=== PATIENT | male | born 1950 | race Two or more races ===

== ENCOUNTER 2019-02-13 10:31 | Day surgery (SDC) | payer MEDICARE, MEDICAID ==
[2019-02-11 11:43] LABS: BASOPHILS % (AUTO) 0.4 % (0-1); EOSINOPHILS # (AUTO) 0.1 X10'3 (0-0.9); HEMATOCRIT 46.1 % (42.0-52.0); HEMOGLOBIN 15.6 g/dl (14.0-17.9); LYMPHOCYTES # (AUTO) 1.3 X10'3 (1.1-4.8); LYMPHOCYTES % (AUTO) 21.7 % (21-51); MEAN CORPUSCULAR HEMOGLOBIN 33.9 PG (27.0-31.0); MEAN CORPUSCULAR HGB CONC 33.9 g/dL (33.0-36.5); MEAN CORPUSCULAR VOLUME 99.8 FL (78-98); MEAN PLATELET VOLUME 7.4 FL (7.4-10.4); MONOCYTES # (AUTO) 0.5 X10'3 (0-0.9); MONOCYTES % (AUTO) 7.6 % (2-12); NEUTROPHILS # (AUTO) 4.1 X10'3 (1.8-7.7); NEUTROPHILS % (AUTO) 68.3 % (42-75); PLATELET COUNT 162 X10'3 (140-440); RED BLOOD COUNT 4.62 X10'6 (4.70-6.10); RED CELL DISTRIBUTION WIDTH 12.7 % (11.5-14.5)
[2019-02-11 11:48] LABS: PARTIAL THROMBOPLASTIN TIME 29 SECONDS (22-32)
[2019-02-11 11:59] LABS: ALANINE AMINOTRANSFERASE 18 U/L (12-78); ALBUMIN 3.3 G/DL (3.4-5.0); ALKALINE PHOSPHATASE 80 IU/L (46-116); ANION GAP 7 (8-16); ASPARTATE AMINO TRANSFERASE 13 U/L (10-37); BLOOD UREA NITROGEN 19 MG/DL (7-18); BUN/CREATININE RATIO 13.6 (5.4-32.0); CALCIUM 8.5 MG/DL (8.5-10.1); CHLORIDE 106 MMOL/L (99-107); GLUCOSE 84 MG/DL (70-104); POTASSIUM 4.6 MMOL/L (3.5-5.1); SODIUM 140 MMOL/L (135-145); TOTAL PROTEIN 6.6 G/DL (6.4-8.2); eGFR 50 ML/MIN
[~2019-02-13] VITALS: Ht 165.1 cm; Wt 84.2 kg
[2019-02-13] VITALS (11 sets, daily range): BP systolic 103–186; BP diastolic 56–105
[~2019-02-13 10:31] MED LIST: ASPI-611 PO; ATOR80TA PO; CLOP75TA15 PO; DOCU100C40 PO; ECON15CR13 TP; FAMO20TA8 PO; GABA-532 PO; GEMF600T5 PO; HYDR-3972 PO; MELO-100 PO; METO25TA6 PO; OMEP-50 PO
[2019-02-13] MEDS ORDERED: nitroGLYCERIN 0.4mg SUBLingual tab SL PRN (10:55)
[2019-02-13] MEDS ORDERED: LORazepam 0.5 MG tablet PO PRN (10:55)
[2019-02-13] MEDS ORDERED: normal saline 1,000 ML IV SCH (10:55)
[2019-02-13] MEDS ORDERED: diphenhydrAMINE 25mg capsule PO PRN (10:55)
[2019-02-13] MEDS ORDERED: METO-539 PO (11:19)
[2019-02-13] MEDS ORDERED: MELO-102 PO (11:19)
[2019-02-13] MEDS ORDERED: midazolam 2 mg/2 ml injection ONE ×2 (13:26→14:21)
[2019-02-13] MEDS ORDERED: iohexol 350MG/ML 100ml bottle IV ONE ×2 (13:27→14:08)
[2019-02-13] MEDS ORDERED: fentaNYL/PF 50MCG/1 ML 2ML syringe ONE ×2 (13:27→14:24)
[2019-02-13] MEDS ORDERED: LIDOcaine 1% (10mg/ml)w/preservative injection 20ml MDV ONE (13:27)
[2019-02-13] MEDS ORDERED: iohexol 350 MG/ML 50ML vial IV ONE (13:27)
[2019-02-13] MEDS ORDERED: HYDROcodone/acetaminophen 5mg/325mg tablet PO PRN (16:15)
[2019-02-13] MEDS ORDERED: OXAZEpam 15mg capsule PO PRN (16:15)
[2019-02-13] MEDS ORDERED: ondansetron/PF 4mg/2ml inj IV PRN (16:15)
[2019-02-13] MEDS ORDERED: proCHLORperazine 10 MG/2 ml inj IV PRN (16:15)
[2019-02-13] MEDS ORDERED: HYDROcodone/acetaminophen 10/325mg tab PO PRN (16:15)
== END 2019-02-13 21:00 | disposition home or self-care (01) ==
LOC: SSTAY O 10:31
PROVIDERS: ATTEND Internal Medicine Cardiovascular Disease
DX: I25.10 Atherosclerotic heart disease of native coronary artery without angina pectoris (principal); I12.9 Hypertensive chronic kidney disease with stage 1 through stage 4 chronic kidney disease, or unspecified chronic kidney disease; N18.3 Chronic kidney disease, stage 3 (moderate); M19.90 Unspecified osteoarthritis, unspecified site; K21.9 Gastro-esophageal reflux disease without esophagitis; J44.9 Chronic obstructive pulmonary disease, unspecified; E78.5 Hyperlipidemia, unspecified; Z87.891 Personal history of nicotine dependence; Z95.1 Presence of aortocoronary bypass graft; Z79.82 Long term (current) use of aspirin; Z79.899 Other long term (current) drug therapy; Z79.01 Long term (current) use of anticoagulants
CPT/HCPCS: 36415; 71046; 80053; 83880; 85025; 85610; 85730; 93005; 93459; 99152; 99153; C1769; J1644; J2001; J2250; J3010; J7030; Q0163; Q9967; A4620; A6258; C1760

== ENCOUNTER 2020-09-14 05:24 | Day surgery (SDC) | payer MEDICARE, MEDICAID ==
[2020-09-07 12:55] LABS: BASOPHILS % (AUTO) 0.6 % (0-1); EOSINOPHILS # (AUTO) 0.1 X10'3 (0-0.9); EOSINOPHILS % (AUTO) 2.1 % (0-6); LYMPHOCYTES # (AUTO) 1.4 X10'3 (1.1-4.8); LYMPHOCYTES % (AUTO) 26.7 % (21-51); MEAN CORPUSCULAR HEMOGLOBIN 32.6 PG (27.0-31.0); MEAN CORPUSCULAR HGB CONC 33.3 g/dL (33.0-36.5); MEAN CORPUSCULAR VOLUME 97.8 FL (78-98); MEAN PLATELET VOLUME 7.5 FL (7.4-10.4); MONOCYTES # (AUTO) 0.5 X10'3 (0-0.9); MONOCYTES % (AUTO) 10.1 % (2-12); NEUTROPHILS # (AUTO) 3.2 X10'3 (1.8-7.7); NEUTROPHILS % (AUTO) 60.5 % (42-75); PRE OP HEMATOCRIT 44.6 % (42.0-52.0); PRE OP HEMOGLOBIN 14.8 g/dL (14.0-17.9); PRE OP PLATELET COUNT 257 X10'3 (140-440); RED BLOOD COUNT 4.56 X10'6 (4.70-6.10); RED CELL DISTRIBUTION WIDTH 14.2 % (11.5-14.5)
[2020-09-07 13:20] LABS: ALBUMIN 3.4 G/DL (3.4-5.0); ALBUMIN/GLOBULIN RATIO 0.9 (1.1-1.5); ALKALINE PHOSPHATASE 106 IU/L (46-116); BLOOD UREA NITROGEN 13 MG/DL (7-18); BUN/CREATININE RATIO 10.6 (5.4-32.0); CALCIUM 9.2 MG/DL (8.5-10.1); CHLORIDE 105 MMOL/L (99-107); CREATININE 1.23 MG/DL (0.60-1.10); PRE OP ALT 18 U/L (30-65); PRE OP ANION GAP 8 (8-16); PRE OP AST 21 U/L (10-37); PRE OP BILIRUB, TOTAL 0.4 MG/DL (0.0-1.0); PRE OP GLUCOSE 103 MG/DL (70-104); PRE OP POTASSIUM 3.7 MMOL/L (3.4-5.1); PRE OP SODIUM 141 MMOL/L (135-145); TOTAL CARBON DIOXIDE 28.4 MMOL/L (24-32); TOTAL PROTEIN 7.2 G/DL (6.4-8.2); eGFR 58 ML/MIN
[2020-09-14] VITALS (8 sets, daily range): BP systolic 143–170; BP diastolic 78–97
[~2020-09-14] VITALS: Ht 165.1 cm; Wt 80.0 kg
[~2020-09-14 05:24] MED LIST changes: +BACL10TA2 PO; -CLOP75TA15 PO; -DOCU100C40 PO; -ECON15CR13 TP; -FAMO20TA8 PO; +GABA-530 PO; -GABA-532 PO; -GEMF600T5 PO; +GEMF600T89 PO; -HYDR-3972 PO; +LISI10TA27 PO; -MELO-100 PO; +TRAM50TA2 PO; +ringers solution, lacted 1,000 ML IV SCH
[2020-09-14] MEDS ORDERED: DOCUMENT DATE & TIME OF BETA-BLOCKER PO ONE (05:30)
[2020-09-14] MEDS ORDERED: famotidine 20mg tablet PO ONE (05:30)
[2020-09-14] MEDS ORDERED: ceFAZolin 2gm in dextrose, iso 50 ML IV ONE (05:30)
[2020-09-14] MEDS ORDERED: BUPIVAcaine/PF 2.5mg/ml (0.25%) 10ml vial ONE (06:46)
[2020-09-14] MEDS ORDERED: LIDOcaine 0.5% (5mg/ml) 50ml vial ONE (07:04)
[2020-09-14] MEDS ORDERED: morphine 2 MG/ML inj. syringe IV PRN (07:10)
[2020-09-14] MEDS ORDERED: ondansetron/PF 4mg/2ml inj IV PRN (07:10)
[2020-09-14] MEDS ORDERED: fentaNYL/PF 50MCG/1 ML 2ML syringe IV PRN ×2 (07:10)
[2020-09-14] MEDS ORDERED: hydrALAZINE 20mg/ml inj. IV PRN (07:10)
[2020-09-14] MEDS ORDERED: labetalol 20mg/4ml (5mg/ml) syringe IV PRN (07:10)
[2020-09-14] MEDS ORDERED: ringers solution, lacted 1,000 ML IV SCH (07:10)
[2020-09-14] MEDS ORDERED: morphine 4 MG/ML inj SYRINge IV PRN (07:10)
[2020-09-14] MEDS ORDERED: MIDAZolam 1 MG/ML 5ML VIAL ONE (07:13)
[2020-09-14] MEDS ORDERED: fentaNYL/PF 50MCG/1 ML 2ML syringe ONE (07:13)
--- NOTE | 2020-09-14 09:11 | NUR ---
Received from OR via [facility] , accompanied by Anesthesiologist and report given by Anesthesiolgist. PATIENT IN STABLE CONDITION AND DENIES ANY PAIN AT THIS TIME. Addendum: 09/14/20 at 0932 by Patria Garcia RN Amended: Links added.
--- NOTE | 2020-09-14 10:15 | NUR ---
PATIENT DISCHARGED AFTER WRITTEN AND VERBAL DISCHARGE INSTRUCTIONS GIVEN. PATIENT GAVE VERBAL UNDERSTAND Addendum: 09/14/20 at 1019 by Patria Garcia RN Amended: Links added.
--- NOTE | 2020-09-14 10:16 | NUR ---
PATIENT DISCHARGED HOME AFTER WRITTEN AND VERBAL DISCHARGE INSTRUCTIONS GIVEN. PATENT GAVE VERBAL UNDERSTANDING OF DISCHARGE INSTRUCTIONS. PATIENT LEFT FACILITY VIA WHEELCHAIR WITH PERSONAL BELONGINGS.. PATIENT LEFT IN TRANSPORT VAN WITH NO INCIDENCE. Addendum: 09/14/20 at 1019 by Patria Garcia RN Amended: Links added.
== END 2020-09-14 09:57 | disposition home or self-care (01) ==
LOC: PAS 05:24
PROVIDERS: ATTEND Orthopaedic Surgery Hand Surgery
DX: G56.02 Carpal tunnel syndrome, left upper limb (principal); I10 Essential (primary) hypertension; G89.29 Other chronic pain; I25.10 Atherosclerotic heart disease of native coronary artery without angina pectoris; M19.011 Primary osteoarthritis, right shoulder; M18.0 Bilateral primary osteoarthritis of first carpometacarpal joints; K21.9 Gastro-esophageal reflux disease without esophagitis; E78.5 Hyperlipidemia, unspecified; E66.9 Obesity, unspecified; Z68.29 Body mass index [BMI] 29.0-29.9, adult; Z79.899 Other long term (current) drug therapy; Z95.1 Presence of aortocoronary bypass graft; Z96.653 Presence of artificial knee joint, bilateral; Z20.822 Contact with and (suspected) exposure to COVID-19; Z82.49 Family history of ischemic heart disease and other diseases of the circulatory system
CPT/HCPCS: 36415; 64721; 80053; 82948; 85025; 93005; A6222; J2001; J2250; J3010; J3490; U0003; A4215; A6449; J7120

== ENCOUNTER 2021-03-24 12:37 | Emergency (ER) | payer MEDICARE, MEDICAID ==
[~2021-03-24] VITALS: Ht 165.1 cm; Wt 80.0 kg
[~2021-03-24 12:37] MED LIST changes: +LOP25T PO; -METO25TA6 PO; -ringers solution, lacted 1,000 ML IV SCH
[2021-03-24 12:58] VITALS: BP 127/84
[2021-03-24] MEDS ORDERED: ORPH100T2 PO (14:24)
[2021-03-24] MEDS ORDERED: ketorolac trometh inj. 60 MG/2 ML VIAL IM ONE (14:25)
[2021-03-24] MEDS ORDERED: orphenadrine citrate 60mg/2ml inj. IM ONE (14:25)
== END 2021-03-24 14:55 | disposition home or self-care (01) ==
LOC: ER 12:41
DX: S46.911A Strain of unspecified muscle, fascia and tendon at shoulder and upper arm level, right arm, initial encounter (principal); M62.830 Muscle spasm of back; I25.10 Atherosclerotic heart disease of native coronary artery without angina pectoris; E78.00 Pure hypercholesterolemia, unspecified; I10 Essential (primary) hypertension; I25.2 Old myocardial infarction; G89.29 Other chronic pain; Z98.890 Other specified postprocedural states; Z72.89 Other problems related to lifestyle; Z79.82 Long term (current) use of aspirin; Z79.899 Other long term (current) drug therapy; X58.XXXA Exposure to other specified factors, initial encounter; Y93.89 Activity, other specified; Y92.89 Other specified places as the place of occurrence of the external cause; Y99.8 Other external cause status
CPT/HCPCS: 71045; 93005; 96372; 99284; J1885; J2360

== ENCOUNTER 2022-03-07 06:09 | Day surgery (SDC) | payer MEDICARE, MEDICAID ==
[2022-03-01 11:08] LABS: BASOPHILS % (AUTO) 0.5 % (0-1); EOSINOPHILS # (AUTO) 0.1 X10'3 (0-0.9); EOSINOPHILS % (AUTO) 2.1 % (0-6); LYMPHOCYTES # (AUTO) 1.4 X10'3 (1.1-4.8); MEAN CORPUSCULAR HGB CONC 33.9 g/dL (33.0-36.5); MEAN CORPUSCULAR VOLUME 97.5 FL (78-98); MONOCYTES # (AUTO) 0.5 X10'3 (0-0.9); NEUTROPHILS # (AUTO) 3.5 X10'3 (1.8-7.7); NEUTROPHILS % (AUTO) 63.4 % (42-75); PRE OP HEMATOCRIT 41.9 % (42.0-52.0); PRE OP HEMOGLOBIN 14.2 g/dL (14.0-17.9); PRE OP PLATELET COUNT 236 X10'3 (140-440); RED BLOOD COUNT 4.29 X10'6 (4.70-6.10); RED CELL DISTRIBUTION WIDTH 13.5 % (11.5-14.5)
[2022-03-01 11:32] LABS: ALBUMIN 3.3 G/DL (3.4-5.0); ALBUMIN/GLOBULIN RATIO 0.9 (1.1-1.5); ALKALINE PHOSPHATASE 94 IU/L (46-116); BLOOD UREA NITROGEN 24 MG/DL (7-18); BUN/CREATININE RATIO 14.8 (5.4-32.0); CALCIUM 8.9 MG/DL (8.5-10.1); CHLORIDE 107 MMOL/L (99-107); CREATININE 1.62 MG/DL (0.60-1.10); PRE OP ALT 15 U/L (30-65); PRE OP ANION GAP 8 (8-16); PRE OP AST 14 U/L (10-37); PRE OP BILIRUB, TOTAL 0.4 MG/DL (0.0-1.0); PRE OP GLUCOSE 83 MG/DL (70-104); PRE OP POTASSIUM 4.2 MMOL/L (3.4-5.1); PRE OP SODIUM 142 MMOL/L (135-145); TOTAL CARBON DIOXIDE 27.1 MMOL/L (24-32); eGFR 42 ML/MIN
[~2022-03-07] VITALS: Ht 165.1 cm; Wt 84.1 kg
[~2022-03-07 06:09] MED LIST changes: +DOCUMENT DATE & TIME OF BETA-BLOCKER PO ONE; -GEMF600T89 PO; -OMEP-50 PO; +OMEP20CA16 PO; +VITAMIN D3; +ceFAZolin inj. 2,000 MG in dextrose 5%-water 100 ML IV ONE; +famotidine 20mg tablet PO ONE; +ringers solution, lacted 1,000 ML IV SCH
[2022-03-07 06:20] VITALS: BP 122/80
[2022-03-07] MEDS ORDERED: LIDOcaine 0.5% (5mg/ml) 50ml vial ONE (07:27)
[2022-03-07] MEDS ORDERED: BUPIVAcaine/PF 2.5mg/ml (0.25%) 10ml vial ONE (08:04)
[2022-03-07] MEDS ORDERED: midazolam 1 mg/ML 2ml injection ONE (09:31)
[2022-03-07] MEDS ORDERED: fentaNYL/PF 50MCG/1 ML 2ML syringe ONE (09:31)
[2022-03-07 10:02] VITALS: BP 140/82
--- NOTE | 2022-03-07 10:02 | NUR ---
Received from OR via [facility] accompanied by Anesthesiologist HYUN and report given by Anesthesiolgist. ARRIVES AAOX4, NO COMPLAINTS OF PAIN. DRESSING CLEAN DRY AND INTACT TO R LOWER ARM. ON RA. Addendum: 03/07/22 at 1017 by Cachorro Conteh RN Amended: Links added.
[2022-03-07 10:10] VITALS: BP 128/77
[2022-03-07 10:20] VITALS: BP 135/83
--- NOTE | 2022-03-07 10:32 | NUR ---
PT OUT OF REC ROOM WITH WHEELCHAIR, PT AMBULATORY AND INDEPENDENT WITH NARROW STEADY GAIT. NO COMPLAINTS OF PAIN, AAOX4, PT PROVIDED VERBAL AND WRITTEN DC PAPERWORK, QUESTIONS ADDRESSED. TO POV INTO CARE OF FRIEND WITHOUT INCIDENT. Addendum: 03/07/22 at 1047 by Cachorro Conteh RN Amended: Links added.
== END 2022-03-07 10:32 | disposition home or self-care (01) ==
LOC: PAS 06:09
PROVIDERS: ATTEND Orthopaedic Surgery Hand Surgery
DX: G56.01 Carpal tunnel syndrome, right upper limb (principal); E78.5 Hyperlipidemia, unspecified; I10 Essential (primary) hypertension; I25.2 Old myocardial infarction; K21.9 Gastro-esophageal reflux disease without esophagitis; Z96.653 Presence of artificial knee joint, bilateral; Z79.899 Other long term (current) drug therapy; Z98.890 Other specified postprocedural states; Z95.1 Presence of aortocoronary bypass graft; Z95.5 Presence of coronary angioplasty implant and graft
CPT/HCPCS: 29848; 36415; 80053; 82948; 85025; 87811; 93005; J0690; J2250; J3010; J3490; J7030; J7060; J7120; Z7506; Z7512; A4215; A7000

== ENCOUNTER 2023-01-17 11:45 | Inpatient (IN) | payer MEDICARE, MEDICAID ==
[~2023-01-17] VITALS: Ht 165.1 cm; Wt 79.0 kg
[~2023-01-17 11:45] MED LIST changes: -ASPI-611 PO; +ASPI81TA52 PO; -BACL10TA2 PO; +CHOL20003 PO; -DOCUMENT DATE & TIME OF BETA-BLOCKER PO ONE; +FLO0.4C PO; -TRAM50TA2 PO; -VITAMIN D3; -ceFAZolin inj. 2,000 MG in dextrose 5%-water 100 ML IV ONE; -famotidine 20mg tablet PO ONE; -ringers solution, lacted 1,000 ML IV SCH
[2023-01-17] MEDS ORDERED: normal saline 1000ML IV soln IVB ONE (12:25)
[2023-01-17 13:31] LABS: BASOPHILS % (AUTO) 0.2 % (0-1); EOSINOPHILS # (AUTO) 0.1 X10'3 (0-0.9); EOSINOPHILS % (AUTO) 2.1 % (0-6); HEMATOCRIT 41.1 % (42.0-52.0); HEMOGLOBIN 13.7 g/dl (14.0-17.9); LYMPHOCYTES % (AUTO) 16.1 % (21-51); MEAN CORPUSCULAR HEMOGLOBIN 33.1 PG (27.0-31.0); MEAN CORPUSCULAR HGB CONC 33.2 g/dL (33.0-36.5); MEAN CORPUSCULAR VOLUME 99.7 FL (78-98); MONOCYTES # (AUTO) 0.6 X10'3 (0-0.9); MONOCYTES % (AUTO) 10.5 % (2-12); NEUTROPHILS # (AUTO) 4.2 X10'3 (1.8-7.7); NEUTROPHILS % (AUTO) 71.1 % (42-75); PLATELET COUNT 222 X10'3 (140-440); RED BLOOD COUNT 4.13 X10'6 (4.70-6.10); RED CELL DISTRIBUTION WIDTH 14.4 % (11.5-14.5)
[2023-01-17 13:52] LABS: ALANINE AMINOTRANSFERASE 15 U/L (12-78); ALBUMIN 3.3 G/DL (3.4-5.0); ALBUMIN/GLOBULIN RATIO 0.9 (1.1-1.5); ALKALINE PHOSPHATASE 87 IU/L (46-116); ANION GAP 17 (8-16); ASPARTATE AMINO TRANSFERASE 13 U/L (10-37); BILIRUBIN,TOTAL 0.9 MG/DL (0.1-1.0); BLOOD UREA NITROGEN 61 MG/DL (7-18); BUN/CREATININE RATIO 8.6 (10.0-20.0); CALCIUM 8.6 MG/DL (8.5-10.1); CHLORIDE 99 MMOL/L (99-107); GLUCOSE 114 MG/DL (70-104); POTASSIUM 4.2 MMOL/L (3.5-5.1); SODIUM 138 MMOL/L (135-145); TOTAL PROTEIN 6.8 G/DL (6.4-8.2); eGFR 8 ML/MIN
[2023-01-17] MEDS ORDERED: potassium Cl 20 mEq SR tablet PO PRN ×2 (15:35)
[2023-01-17] MEDS ORDERED: magnesium Cl slow-release 64mg tablet PO PRN (15:35)
[2023-01-17] MEDS ORDERED: acetaminophen 325mg tablet PO PRN (15:35)
[2023-01-17] MEDS ORDERED: magnesium 4gm in 100ml NS 100 ML IV PRN (15:35)
[2023-01-17] MEDS ORDERED: potassium Cl 40MEQ/1/2NS 520ml 520 ML IV PRN (15:35)
[2023-01-17] MEDS ORDERED: magnesium hydroxide 30ml (MOM) UD suspension PO PRN (15:35)
[2023-01-17] MEDS ORDERED: ondansetron/PF 4mg/2ml inj IV PRN (15:35)
[2023-01-17] MEDS ORDERED: magnesium 2GM in 50ml NS 50 ML IV PRN (15:35)
[2023-01-17] MEDS ORDERED: mag hydrox/Alum hydrox/simeth 30ml oral suspension PO PRN (15:35)
[2023-01-17] MEDS ORDERED: TRAM50TA2 PO (15:40)
[2023-01-17] MEDS ORDERED: ATOR40TA72 PO (15:40)
[2023-01-17] MEDS ORDERED: CYCL-1 PO (15:40)
[2023-01-17] MEDS ORDERED: NITR0.4T48 SL (15:40)
[2023-01-17] MEDS: normal saline 1000ml 1,000 ML IV SCH (15:58)
[2023-01-17 16:29] LABS: CREATINE KINASE 157 U/L (39-308); MAGNESIUM 2.1 MG/DL (1.5-2.4); PHOSPHORUS 6.9 MG/DL (2.3-4.5)
--- NOTE | 2023-01-17 18:53 | NUR ---
pt eating dinner.
[2023-01-17 19:53] VITALS: BP 107/55; PULSE 61; RESP 16; TEMP 98.3; O2SAT 97
--- NOTE | 2023-01-17 19:54 | NUR ---
Received patient to room 4021B. Patient alert and oriented in no apparent acute distress and no complaints. Patient denies pain or discomfort, no dizziness or lightheadedness. Patient able to ambulate independently to bathroom. Oriented patient to room and call light. Call light placed within patients reach.
[2023-01-17] MEDS: K and/or MAG REPLACEMENT MC SCH (20:00)
[2023-01-17] MEDS: docusate sod 100mg capsule PO SCH (20:00)
[2023-01-17 20:44] VITALS: RESP 16; O2SAT 97
--- NOTE | 2023-01-17 21:10 | NUR ---
AGER ID: [id number] MESSAGE: 4021B- Munir Daniels- pt states normally takes Flexeril 10MG po BID and tramadol 50mg po PRN BID for back pain. Ok to order? Patient c/o pain- Ayan [phone]
[2023-01-17] MEDS ORDERED: traMADol 50MG tablet PO PRN (21:15)
[2023-01-17 21:23] LABS: CLARITY,URINE SLIGHTLY CLOUDY (Clear); COLOR,URINE YELLOW (Yellow); GLUCOSE, URINE NEGATIVE (Neg); KETONES,URINE NEGATIVE (Neg); LEUKOCYTE ESTERASE ,URINE NEGATIVE (Neg); NITRITES, URINE NEGATIVE (Neg); OCCULT BLOOD,URINE NEGATIVE (Neg); PH,URINE 5.5 (4.8-8.0); PROTEIN,URINE TRACE mg/dl (Neg)
[2023-01-17] MEDS: cyclobenzaprine 10mg tablet PO SCH (21:23)
[2023-01-17 21:31] LABS: SQUAMOUS EPITHELIAL CELL,UR FEW /LPF (FEW); UA COLLECTION TYPE NON-SPECIFIED
[2023-01-17 21:32] LABS: COARSE GRANULAR CAST 0-3 /LPF (NEGATIVE); HYALINE CASTS >30 /LPF (NEGATIVE); MUCUS STRANDS FEW /LPF (Neg)
[2023-01-17 21:33] LABS: BACTERIA,URINE FEW /HPF (Neg); RBC,URINE 0-2 /HPF (0-2); WBC,URINE 0-4 /HPF (0-4)
[2023-01-17 21:40] LABS: CAL OXALATE CRYSTALS 1+ /HPF (NEGATIVE); RENAL CELLS, URINE FEW /HPF
[2023-01-17 23:15] VITALS: BP 107/66; PULSE 63; RESP 16; TEMP 98.4; O2SAT 96
[2023-01-18] MEDS: normal saline 1000ml 1,000 ML IV SCH ×2 (02:13→15:10)
[2023-01-18 06:00] VITALS: BP 98/54; PULSE 60; RESP 19; TEMP 97.4; O2SAT 95
--- NOTE | 2023-01-18 06:09 | NUR ---
Problems reprioritized. Patient report given, questions answered & plan of care reviewed with JENI Sanz.
[2023-01-18 06:14] LABS: BASOPHILS % (AUTO) 0.4 % (0-1); EOSINOPHILS # (AUTO) 0.1 X10'3 (0-0.9); EOSINOPHILS % (AUTO) 2.8 % (0-6); HEMATOCRIT 38.4 % (42.0-52.0); HEMOGLOBIN 12.8 g/dl (14.0-17.9); LYMPHOCYTES # (AUTO) 1.3 X10'3 (1.1-4.8); LYMPHOCYTES % (AUTO) 24.7 % (21-51); MEAN CORPUSCULAR HEMOGLOBIN 33.4 PG (27.0-31.0); MEAN CORPUSCULAR HGB CONC 33.4 g/dL (33.0-36.5); MEAN PLATELET VOLUME 7.9 FL (7.4-10.4); MONOCYTES # (AUTO) 0.6 X10'3 (0-0.9); MONOCYTES % (AUTO) 12.5 % (2-12); NEUTROPHILS # (AUTO) 3.1 X10'3 (1.8-7.7); NEUTROPHILS % (AUTO) 59.6 % (42-75); PLATELET COUNT 189 X10'3 (140-440); RED BLOOD COUNT 3.83 X10'6 (4.70-6.10); WHITE BLOOD COUNT 5.2 X10'3 (4.5-11.0)
[2023-01-18 06:27] LABS: ALANINE AMINOTRANSFERASE 13 U/L (12-78); ALBUMIN 2.8 G/DL (3.4-5.0); ALBUMIN/GLOBULIN RATIO 0.9 (1.1-1.5); ALKALINE PHOSPHATASE 81 IU/L (46-116); ANION GAP 11 (8-16); ASPARTATE AMINO TRANSFERASE 16 U/L (10-37); BILIRUBIN,TOTAL 0.4 MG/DL (0.1-1.0); BLOOD UREA NITROGEN 55 MG/DL (7-18); BUN/CREATININE RATIO 13.1 (10.0-20.0); CALCIUM 7.8 MG/DL (8.5-10.1); CHLORIDE 107 MMOL/L (99-107); GLUCOSE 87 MG/DL (70-104); POTASSIUM 4.3 MMOL/L (3.5-5.1); SODIUM 139 MMOL/L (135-145); TOTAL CARBON DIOXIDE 21.2 MMOL/L (24-32); TOTAL PROTEIN 5.9 G/DL (6.4-8.2); eGFR 14 ML/MIN
[2023-01-18] MEDS: cyclobenzaprine 10mg tablet PO SCH ×2 (07:52→20:00)
[2023-01-18 08:00] VITALS: RESP 16; O2SAT 97
[2023-01-18] MEDS: docusate sod 100mg capsule PO SCH ×2 (08:00→20:00)
[2023-01-18] MEDS: K and/or MAG REPLACEMENT MC SCH ×2 (08:00→20:00)
[2023-01-18 10:00] VITALS: BP 100/52; PULSE 59; RESP 16; TEMP 97.5; O2SAT 97
--- NOTE | 2023-01-18 11:15 | NUR ---
Patient in room [facility]THO 4020. I have received report from ashley ramos and had the opportunity to ask questions and assume patient care.
--- NOTE | 2023-01-18 14:41 | NUR ---
Page Accepted Message: [id number] [address] pt wants to take his meds and can these please be reviewed. was unable to get in contact with resident thanks satcy. [phone]
[2023-01-18 15:34] LABS: HEMOGLOBIN A1C 5.5 % (4.5-6.2)
[2023-01-18 15:45] LABS: HDL CHOLESTEROL 33 MG/DL (35-60); LDL CHOLESTEROL 65 MG/DL (50-100); MAGNESIUM 1.6 MG/DL (1.5-2.4); PHOSPHORUS 3.6 MG/DL (2.3-4.5); TRIGLYCERIDES 192 MG/DL (20-135)
[2023-01-18 15:56] LABS: CHOL/HDL RATIO 3.8 (0.00-4.99); CHOLESTEROL 127 MG/DL (0-200)
--- NOTE | 2023-01-18 16:50 | NUR ---
Page Accepted Message: [id number] b la pt needs his meds reviewed so he can take them. this is my 2nd page. stacy [phone]
[2023-01-18] MEDS ORDERED: traMADol 50MG tablet PO PRN (16:55)
[2023-01-18] MEDS: tamsulosin 0.4mg capsule PO SCH (17:47)
[2023-01-18 18:00] VITALS: BP 111/58; PULSE 63; RESP 16; TEMP 98.6; O2SAT 98
--- NOTE | 2023-01-18 18:19 | NUR ---
Problems reprioritized. Patient report given, questions answered & plan of care reviewed with christa ramos.
--- NOTE | 2023-01-18 18:51 | NUR ---
Report received from Manny NGO, assumed care of patient at 1830
[2023-01-18] MEDS ORDERED: cyclobenzaprine 10mg tablet PO SCH (20:00)
[2023-01-18 20:35] VITALS: BP 118/52; PULSE 62; RESP 16
[2023-01-18] MEDS: metoprolol tartrate 25mg tablet PO SCH (20:40)
[2023-01-18] MEDS ORDERED: aspirin 81mg, enteric-coated 1 TAB TABLET.DR PO SCH (21:00)
[2023-01-18] MEDS ORDERED: cholecalciferol (vitamin D3) 1,000 unit (25mcg) tablet PO SCH (21:00)
[2023-01-18] MEDS ORDERED: atorvastatin 20mg tablet PO SCH (21:00)
[2023-01-18 23:00] VITALS: BP 122/58
[2023-01-19] MEDS: normal saline 1000ml 1,000 ML IV SCH ×2 (00:57→08:14)
[2023-01-19 05:59] LABS: BASOPHILS % (AUTO) 0.6 % (0-1); EOSINOPHILS # (AUTO) 0.1 X10'3 (0-0.9); EOSINOPHILS % (AUTO) 2.1 % (0-6); HEMATOCRIT 37.9 % (42.0-52.0); HEMOGLOBIN 12.8 g/dl (14.0-17.9); LYMPHOCYTES # (AUTO) 1.3 X10'3 (1.1-4.8); LYMPHOCYTES % (AUTO) 26.6 % (21-51); MEAN CORPUSCULAR HEMOGLOBIN 33.6 PG (27.0-31.0); MEAN CORPUSCULAR HGB CONC 33.9 g/dL (33.0-36.5); MEAN CORPUSCULAR VOLUME 99.2 FL (78-98); MEAN PLATELET VOLUME 7.9 FL (7.4-10.4); MONOCYTES # (AUTO) 0.6 X10'3 (0-0.9); MONOCYTES % (AUTO) 11.5 % (2-12); NEUTROPHILS # (AUTO) 2.9 X10'3 (1.8-7.7); NEUTROPHILS % (AUTO) 59.2 % (42-75); PLATELET COUNT 193 X10'3 (140-440); RED BLOOD COUNT 3.82 X10'6 (4.70-6.10); RED CELL DISTRIBUTION WIDTH 13.9 % (11.5-14.5)
--- NOTE | 2023-01-19 06:30 | NUR ---
reported to day RN. noted patient's labs improving and patient wants to go home today. am labs drawn.
[2023-01-19 06:56] LABS: ALANINE AMINOTRANSFERASE 11 U/L (12-78); ALBUMIN 2.6 G/DL (3.4-5.0); ALBUMIN/GLOBULIN RATIO 0.9 (1.1-1.5); ALKALINE PHOSPHATASE 70 IU/L (46-116); ANION GAP 10 (8-16); ASPARTATE AMINO TRANSFERASE 15 U/L (10-37); BILIRUBIN,TOTAL 0.5 MG/DL (0.1-1.0); BLOOD UREA NITROGEN 33 MG/DL (7-18); BUN/CREATININE RATIO 21.2 (10.0-20.0); CHLORIDE 109 MMOL/L (99-107); CREATININE 1.56 MG/DL (0.60-1.10); GLUCOSE 87 MG/DL (70-104); MAGNESIUM 1.4 MG/DL (1.5-2.4); PHOSPHORUS 2.4 MG/DL (2.3-4.5); POTASSIUM 4.2 MMOL/L (3.5-5.1); SODIUM 139 MMOL/L (135-145); TOTAL CARBON DIOXIDE 20.1 MMOL/L (24-32); TOTAL PROTEIN 5.6 G/DL (6.4-8.2); eGFR 44 ML/MIN
[2023-01-19 07:12] VITALS: BP 116/61; PULSE 87; RESP 23; TEMP 98.6; O2SAT 99
[2023-01-19 08:00] VITALS: RESP 23; O2SAT 99
[2023-01-19] MEDS: K and/or MAG REPLACEMENT MC SCH (08:00)
[2023-01-19] MEDS ORDERED: pantoprazole 40mg Tablet.DR PO SCH (08:00)
[2023-01-19] MEDS: docusate sod 100mg capsule PO SCH (08:12)
[2023-01-19] MEDS: cyclobenzaprine 10mg tablet PO SCH (08:12)
[2023-01-19] MEDS: metoprolol tartrate 25mg tablet PO SCH (08:13)
[2023-01-19] MEDS: tamsulosin 0.4mg capsule PO SCH (08:13)
[2023-01-19 10:00] VITALS: BP 127/77; PULSE 66; RESP 16; TEMP 98.3; O2SAT 99
--- NOTE | 2023-01-19 13:08 | NUR ---
Pt discharged home. Friend picked up pt. Pt left in stable condition, ambulated independently. All belongings sent home with pt.
[2023-01-19] MEDS ORDERED: ACET-1008 PO (15:53)
== END 2023-01-19 12:55 | disposition home or self-care (01) | DRG 682 ==
LOC: ER 11:46 → ED HOLD 15:39 → ORTHO 4S 19:50
PROVIDERS: ADMIT Internal Medicine; ATTEND Internal Medicine
DX: N17.0 Acute kidney failure with tubular necrosis (principal); I21.A1 Myocardial infarction type 2; R57.1 Hypovolemic shock; I95.9 Hypotension, unspecified; E86.0 Dehydration; I25.10 Atherosclerotic heart disease of native coronary artery without angina pectoris; Z96.653 Presence of artificial knee joint, bilateral; F10.20 Alcohol dependence, uncomplicated; E78.00 Pure hypercholesterolemia, unspecified; M54.50 Low back pain, unspecified; N40.0 Benign prostatic hyperplasia without lower urinary tract symptoms; R00.1 Bradycardia, unspecified; G89.29 Other chronic pain; I10 Essential (primary) hypertension; I25.2 Old myocardial infarction; Z95.1 Presence of aortocoronary bypass graft; Z82.3 Family history of stroke; Z79.899 Other long term (current) drug therapy; Z79.82 Long term (current) use of aspirin
CPT/HCPCS: 36415; 71045; 76770; 80053; 80061; 81001; 82550; 82948; 83036; 83605; 83735; 83880; 84100; 84145; 84443; 84484; 85025; 87040; 87081; 93005; 99285; G0378; J7030

== ENCOUNTER 2023-07-10 06:28 | Day surgery (SDC) | payer MEDICARE, MEDICAID ==
[2023-07-03 11:29] LABS: BASOPHILS % (AUTO) 0.6 % (0-1); EOSINOPHILS # (AUTO) 0.1 X10'3 (0-0.9); EOSINOPHILS % (AUTO) 2.4 % (0-6); LYMPHOCYTES # (AUTO) 1.4 X10'3 (1.1-4.8); LYMPHOCYTES % (AUTO) 24.4 % (21-51); MEAN CORPUSCULAR HEMOGLOBIN 32.7 PG (27.0-31.0); MEAN CORPUSCULAR HGB CONC 33.8 g/dL (33.0-36.5); MEAN CORPUSCULAR VOLUME 96.8 FL (78-98); MEAN PLATELET VOLUME 7.1 FL (7.4-10.4); MONOCYTES # (AUTO) 0.6 X10'3 (0-0.9); MONOCYTES % (AUTO) 10.4 % (2-12); NEUTROPHILS # (AUTO) 3.7 X10'3 (1.8-7.7); NEUTROPHILS % (AUTO) 62.2 % (42-75); PRE OP HEMATOCRIT 46.9 % (42.0-52.0); PRE OP HEMOGLOBIN 15.8 g/dL (14.0-17.9); PRE OP PLATELET COUNT 242 X10'3 (140-440); PRE OP WHITE BLOOD COUNT 5.9 10'3 (4.8-10.8); RED BLOOD COUNT 4.84 X10'6 (4.70-6.10); RED CELL DISTRIBUTION WIDTH 12.9 % (11.5-14.5)
[2023-07-03 11:44] LABS: ALBUMIN 3.3 G/DL (3.4-5.0); ALBUMIN/GLOBULIN RATIO 0.8 (1.1-1.5); ALKALINE PHOSPHATASE 99 IU/L (46-116); BLOOD UREA NITROGEN 18 MG/DL (7-18); BUN/CREATININE RATIO 11.8 (10.0-20.0); CALCIUM 9.2 MG/DL (8.5-10.1); CHLORIDE 103 MMOL/L (99-107); CREATININE 1.52 MG/DL (0.60-1.10); PRE OP ALT 21 U/L (30-65); PRE OP ANION GAP 6 (8-16); PRE OP AST 23 U/L (10-37); PRE OP BILIRUB, TOTAL 0.8 MG/DL (0.0-1.0); PRE OP GLUCOSE 101 MG/DL (70-104); PRE OP SODIUM 137 MMOL/L (135-145); TOTAL CARBON DIOXIDE 27.9 MMOL/L (24-32); TOTAL PROTEIN 7.3 G/DL (6.4-8.2); eGFR 45 ML/MIN
[~2023-07-10] VITALS: Ht 165.1 cm; Wt 88.5 kg
[~2023-07-10 06:28] MED LIST changes: -ASPI81TA52 PO; -ATOR80TA PO; +CYCL-1 PO; +DOCUMENT DATE & TIME OF BETA-BLOCKER PO ONE; -GABA-530 PO; +GABA300C PO; +NITR0.4T48 SL; +TRAM50TA2 PO; +cefazolin 2gm/D5W 100mL 100 ML IV ONE; +famotidine 20mg tablet PO ONE; +ringers solution, lacted 1,000 ML IV SCH
[2023-07-10 06:30] VITALS: BP 155/90; PULSE 56; RESP 15; RESP 16; TEMP 97.4; O2SAT 98
[2023-07-10] MEDS ORDERED: proCHLORperazine 10 MG/2 ml inj IV PRN (07:25)
[2023-07-10] MEDS ORDERED: labetalol 20mg/4ml (5mg/ml) syringe IV PRN (07:25)
[2023-07-10] MEDS ORDERED: acetaminophen 1,000mg/100ml IV 100 ML IV ONE (07:25)
[2023-07-10] MEDS ORDERED: hydrALAZINE 20mg/ml inj. IV PRN (07:25)
[2023-07-10] MEDS ORDERED: morphine 4 MG/ML inj SYRINge IV PRN (07:25)
[2023-07-10] MEDS ORDERED: ringers solution, lacted 1,000 ML IV SCH (07:25)
[2023-07-10] MEDS ORDERED: meperidine/PF 25mg/ml syringe IV PRN (07:25)
[2023-07-10] MEDS ORDERED: morphine 2 MG/ML inj. syringe IV PRN (07:25)
[2023-07-10] MEDS ORDERED: ondansetron/PF 4mg/2ml inj IV PRN (07:25)
[2023-07-10] MEDS ORDERED: LIDOcaine 2% (20mg/ml) 5ml vial ONE (08:17)
[2023-07-10] MEDS ORDERED: BUPIVAcaine/PF 5 mg/ml 10ml ONE (08:17)
[2023-07-10] MEDS ORDERED: midazolam 1 mg/ML 2ml injection ONE (08:25)
[2023-07-10] MEDS ORDERED: fentaNYL/PF 50MCG/1 ML 2ML syringe ONE (08:25)
[2023-07-10] MEDS ORDERED: propofol inj 20 ML IV ONE ×2 (08:41)
[2023-07-10 09:09] VITALS: BP 88/61; PULSE 68; RESP 16; O2SAT 95
[2023-07-10 09:10] VITALS: BP 88/53; PULSE 64; RESP 20; O2SAT 94
[2023-07-10 09:20] VITALS: BP 110/75; PULSE 58; RESP 21; O2SAT 95
[2023-07-10 09:30] VITALS: BP 117/81; PULSE 58; RESP 20; O2SAT 93
[2023-07-10 09:40] VITALS: BP 131/91; PULSE 59; RESP 18; O2SAT 94
== END 2023-07-10 09:49 | disposition home or self-care (01) ==
LOC: PAS 06:28
PROVIDERS: ATTEND Orthopaedic Surgery Hand Surgery
DX: M65.321 Trigger finger, right index finger (principal); M65.842 Other synovitis and tenosynovitis, left hand; F41.9 Anxiety disorder, unspecified; E66.9 Obesity, unspecified; Z68.31 Body mass index [BMI] 31.0-31.9, adult; I25.2 Old myocardial infarction; K21.9 Gastro-esophageal reflux disease without esophagitis; G89.29 Other chronic pain; M19.011 Primary osteoarthritis, right shoulder; M18.0 Bilateral primary osteoarthritis of first carpometacarpal joints; I12.9 Hypertensive chronic kidney disease with stage 1 through stage 4 chronic kidney disease, or unspecified chronic kidney disease; N18.9 Chronic kidney disease, unspecified; Z98.890 Other specified postprocedural states; Z72.89 Other problems related to lifestyle; Z96.653 Presence of artificial knee joint, bilateral; Z95.1 Presence of aortocoronary bypass graft; Z79.899 Other long term (current) drug therapy
CPT/HCPCS: 26055; 26145; 36415; 80053; 82948; 85025; 93005; J0690; J2250; J2704; J3010; J3490; J7030; J7120; Z7506; Z7512; A4215; A6449